=== PATIENT | male | born 1940 | race Caucasian/White ===

== ENCOUNTER 2023-07-10 19:54 | Inpatient (IN) | payer OTHER, BC ==
[~2023-07-10] VITALS: Ht 177.8 cm; Wt 84.4 kg
[2023-07-10 19:55] VITALS: BP_SYST 156; PULSE 88; RESP 18; TEMP 98.3; O2SAT 95
[2023-07-10] MEDS ORDERED: DEXTROSE 50% JECT 50 ML DISP.SYRIN ONE (19:58)
[2023-07-10] MEDS ORDERED: DEXTROSE 50% JECT 50 ML DISP.SYRIN IVP ONE ×2 (20:00→21:15)
[2023-07-10] MEDS ORDERED: iohexoL 350 mgI/mL, 100 ML INFUS..BTL IV ONE (20:11)
[2023-07-10 21:07] LABS: INR 1.5 (0.80-1.20); PROTHROMBIN TIME 15.3 SECS (9.5-12.5)
[2023-07-10 21:08] LABS: BILIRUBIN,URINE NEGATIVE (NEGATIVE); BLOOD, URINE 3+ (NEGATIVE); CLARITY/URINE CLOUDY (CLEAR); COLOR,URINE YELLOW (YELLOW); GLUCOSE,URINE NEGATIVE (NEGATIVE); KETONES,URINE NEGATIVE (NEGATIVE); LEUKOCYTE ESTERASE ,URINE 3+ (NEGATIVE); NITRITE, URINE POSITIVE (NEGATIVE); PROTEIN URINE 3+ (NEGATIVE); UROBILINOGEN,URINE 0.2 (0.2-1.0)
[2023-07-10 21:18] LABS: ALANINE AMINOTRANSFERASE 45 U/L (12-78); ALBUMIN 2.4 g/dL (3.4-4.8); ANION GAP 20 (5-15); ASPARTATE AMINOTRANSFERASE 33 U/L (10-37); BILIRUBIN,DIRECT 0.1 mg/dL (0.0-0.3); CALCIUM 8.1 mg/dL (8.4-11.0); CARBON DIOXIDE 21 mmol/L (23-29); CHLORIDE 98 mmol/L (98-107); CREATINE KINASE, TOTAL 103 U/L (39-308); CREATININE 3.53 mg/dL (0.55-1.30); GLUCOSE 84 mg/dL (74-106); SODIUM SERUM 139 mmol/L (136-145); TOTAL BILIRUBIN 0.5 mg/dL (0.0-1.0); TOTAL PROTEIN, SERUM 4.6 g/dL (6.4-8.3)
[2023-07-10 21:25] LABS: BASOPHILS % (AUTO) 0.1 % (0.0-2.0); HEMOGLOBIN 10.7 g/dL (14.0-18.0); LYMPHOCYTES # (AUTO) 0.4 K/uL (1.0-5.5); MONOCYTES # (AUTO) 0.3 K/uL (0.0-1.0); RED BLOOD CELL COUNT(AUTO) 3.66 MIL/uL (4.2-6.2); WHITE BLOOD COUNT (AUTO) 11.5 K/uL (4.8-10.8)
[2023-07-10] MEDS: D10W 250 ML IV SCH (21:27)
[2023-07-10 21:30] LABS: HEMATOCRIT 35.4 % (36-54); LYMPHOCYTES % (AUTO) 3.5 % (20.5-51.5); MEAN CORPUSCULAR HEMOGLOBIN 29 pg (27-31); MEAN CORPUSCULAR HGB CONC 30 % (32-36); MEAN CORPUSCULAR VOLUME 97 fL (79.0-98.0); MONOCYTES % (AUTO) 2.7 % (1.7-9.3); NEUTROPHILS # (AUTO) 10.8 K/uL (1.8-7.7); NEUTROPHILS % (AUTO) 93.7 % (40.0-70.0); PLATELET COUNT (AUTO) 93 K/uL (130-430); RED CELL DISTRIBUTION WIDTH 21.5 % (9.0-15.0)
[2023-07-10 21:33] LABS: ALCOHOL, BLOOD < 3 mg/dL (<10)
[2023-07-10 21:39] LABS: POTASSIUM 6.3 mmol/L (3.5-5.1); UREA NITROGEN, BLOOD 121 mg/dL (8-21)
[2023-07-10] MEDS ORDERED: AZITHROMYCIN 500 MG in NS 250 ML IV SCH (21:45)
[2023-07-10] MEDS ORDERED: AZITHROMYCIN 500 MG/VIAL (ZITHROMAX) IV ONE (21:52)
[2023-07-10] MEDS ORDERED: cefTRIAXone 2 GM VIAL ONE (21:53)
[2023-07-10 21:56] LABS: BARBITURATE, URINE NEGATIVE (NEG <=200); BENZODIAZEPINE, URINE NEGATIVE (NEG <=150); CANNABINOID, URINE NEGATIVE (NEG <=50); COCAINE, URINE NEGATIVE (NEG <=150); METHAMPHETAMINES SCREEN,URINE NEGATIVE (NEG <=500); OPIATE, URINE NEGATIVE (NEG <=100); PHENCYCLIDINE SCREEN,URINE NEGATIVE (NEG <=25); URINE AMPHETAMINE NEGATIVE (NEG <=500); URINE METHADONE NEGATIVE (NEG <=200); URINE OXYCODONE SCREEN NEGATIVE (NEG <=100)
[2023-07-10 21:57] LABS: UR TRICYCLIC ANTIDEPRESSANTS NEGATIVE (NEG <=300)
[2023-07-10 22:11] LABS: RBC,URINE 20-50 /HPF (0-3)
[2023-07-10 22:12] LABS: BACTERIA,URINE MANY /HPF (None Seen); MUCUS,URINE None Seen /LPF (None Seen); URIC ACID CRYSTALS,URINE 0-10 /HPF (None Seen); URINE AMORPHOUS URATE 2+ /HPF (None Seen); WBC,URINE >100 /HPF (0-3)
[2023-07-10] MEDS ORDERED: MUPIROCIN 2% TOPICAL OINTMENT 22 GM NS PRN (22:15)
[2023-07-10] MEDS ORDERED: MAGNESIUM SULFATE 50 ML IV PRN (22:15)
[2023-07-10] MEDS ORDERED: MORPHINE 2 MG/ML INJ. SYRINGE IVP PRN ×2 (22:15)
[2023-07-10] MEDS ORDERED: IPRATROPIUM/ALBUTEROL SULFATE 3 ML AMPUL.NEB (DUONEB) INH PRN (22:15)
[2023-07-10] MEDS ORDERED: D5/0.45 NS 1,000 ML IV SCH (22:15)
[2023-07-10] MEDS ORDERED: ZOLPIDEM TARTRATE 5 MG TABLET PO PRN (22:15)
[2023-07-10] MEDS ORDERED: DOCUSATE SODIUM 100 MG CAPSULE PO PRN (22:15)
[2023-07-10] MEDS ORDERED: ACETAMINOPHEN 325 MG TABLET PO PRN (22:15)
[2023-07-10] MEDS ORDERED: LORazepam 2 MG/ML VIAL IVP PRN (22:15)
[2023-07-10] MEDS ORDERED: POTASSIUM CHLORIDE 20 MEQ TABLET.ER PO PRN (22:15)
[2023-07-10] MEDS ORDERED: ONDANSETRON HCL 4 MG/2 ML VIAL IVP PRN (22:15)
[2023-07-10] MEDS: PIPERACILLIN/TAZOBACTAM 2.25 GM in NS 50 ML IV SCH (22:15)
[2023-07-10 22:25] LABS: ABG O2 SAT% ESTIMATE 89.9 % (94.0-100.0); ALLEN'S TEST POSITIVE (P); BLOOD GAS BASE EXCESS -11.1 mmol/L (-3.0-3.0); BLOOD GAS HCO3 20.7 mmol/L (21.0-27.0); BLOOD GAS PCO2 75.1 mmHg (32.0-45.0); BLOOD GAS PH 7.058 (7.350-7.450)
[2023-07-10] MEDS ORDERED: SODIUM POLYSTYRENE SULFONATE 15 GM/60 ML UDBTL PO ONE (22:45)
[2023-07-10 23:45] LABS: ANISOCYTOSIS 2+; OVALOCYTES FEW
[2023-07-11] VITALS (17 sets, daily range): BP systolic 68–83; PULSE 37–92; RESP 16–28; TEMP 97–99.4; O2SAT 91–100
[2023-07-11] MEDS ORDERED: LUTE1CAP5 PO (02:33)
[2023-07-11] MEDS ORDERED: IPRA3AMP9 INH (02:33)
[2023-07-11] MEDS ORDERED: DOCU-144 PO (02:33)
[2023-07-11] MEDS ORDERED: METO-442 PO (02:34)
[2023-07-11] MEDS ORDERED: MIRT-91 PO (02:37)
[2023-07-11] MEDS ORDERED: METF-379 PO (02:37)
[2023-07-11] MEDS ORDERED: ATOR-1 PO (02:37)
[2023-07-11] MEDS ORDERED: ASPI-1155 PO (02:37)
[2023-07-11] MEDS ORDERED: LISI-209 PO (02:37)
[2023-07-11] MEDS: PIPERACILLIN/TAZOBACTAM 2.25 GM in NS 50 ML IV SCH (03:15)
[2023-07-11 06:03] LABS: BASOPHILS # (AUTO) 0.1 K/uL (0.0-0.2); BASOPHILS % (AUTO) 0.4 % (0.0-2.0); HEMOGLOBIN 12.5 g/dL (14.0-18.0); LYMPHOCYTES # (AUTO) 0.1 K/uL (1.0-5.5); LYMPHOCYTES % (AUTO) 0.9 % (20.5-51.5); MEAN CORPUSCULAR HEMOGLOBIN 29 pg (27-31); MEAN CORPUSCULAR HGB CONC 30 % (32-36); MEAN CORPUSCULAR VOLUME 97 fL (79.0-98.0); MONOCYTES # (AUTO) 0.3 K/uL (0.0-1.0); NEUTROPHILS # (AUTO) 15.5 K/uL (1.8-7.7); NEUTROPHILS % (AUTO) 96.7 % (40.0-70.0); PLATELET COUNT (AUTO) 120 K/uL (130-430); RED CELL DISTRIBUTION WIDTH 21.8 % (9.0-15.0)
[2023-07-11 06:13] LABS: ANION GAP 16 (5-15); CALCIUM 8.2 mg/dL (8.4-11.0); CARBON DIOXIDE 26 mmol/L (23-29); CHLORIDE 101 mmol/L (98-107); CREATININE 3.75 mg/dL (0.55-1.30); GLUCOSE 66 mg/dL (74-106); HEMATOCRIT 37.5 % (36-54); RED BLOOD CELL COUNT(AUTO) 3.75 MIL/uL (4.2-6.2); SODIUM SERUM 143 mmol/L (136-145)
[2023-07-11 06:24] LABS: POTASSIUM 5.9 mmol/L (3.5-5.1); UREA NITROGEN, BLOOD 128 mg/dL (8-21)
[2023-07-11] MEDS ORDERED: DEXTROSE 50% JECT 50 ML DISP.SYRIN ONE (06:39)
[2023-07-11] MEDS ORDERED: DEXTROSE 50% JECT 50 ML DISP.SYRIN IVP ONE (06:45)
[2023-07-11] MEDS: D10W 250 ML IV SCH ×2 (07:07→07:13)
[2023-07-11] MEDS ORDERED: D5NS 1,000 ML IV SCH (09:00)
[2023-07-11] MEDS ORDERED: LORazepam 2 MG/ML VIAL IVP PRN (09:00)
[2023-07-12 01:25] VITALS: PULSE 71
[2023-07-12 01:40] VITALS: BP_SYST 79; PULSE 70; RESP 16; TEMP 97.7; O2SAT 100
[2023-07-12 04:05] VITALS: O2SAT 100
[2023-07-12 05:43] VITALS: PULSE 71
[2023-07-12 06:30] LABS: BASOPHILS % (AUTO) 0.1 % (0.0-2.0); LYMPHOCYTES # (AUTO) 0.5 K/uL (1.0-5.5); MEAN CORPUSCULAR HEMOGLOBIN 30 pg (27-31); MEAN CORPUSCULAR HGB CONC 30 % (32-36); MEAN CORPUSCULAR VOLUME 100 fL (79.0-98.0); MONOCYTES # (AUTO) 0.7 K/uL (0.0-1.0); MONOCYTES % (AUTO) 3.9 % (1.7-9.3); NEUTROPHILS # (AUTO) 16.3 K/uL (1.8-7.7); PLATELET COUNT (AUTO) 117 K/uL (130-430); RED BLOOD CELL COUNT(AUTO) 3.41 MIL/uL (4.2-6.2); RED CELL DISTRIBUTION WIDTH 21.7 % (9.0-15.0); WHITE BLOOD COUNT (AUTO) 17.6 K/uL (4.8-10.8)
[2023-07-12 07:10] LABS: ANION GAP 13 (5-15); CALCIUM 7.1 mg/dL (8.4-11.0); CARBON DIOXIDE 27 mmol/L (23-29); CHLORIDE 101 mmol/L (98-107); CREATININE 4.66 mg/dL (0.55-1.30); GLUCOSE 86 mg/dL (74-106); SODIUM SERUM 141 mmol/L (136-145)
[2023-07-12 07:53] VITALS: PULSE 98
[2023-07-12 08:00] VITALS: BP_SYST 104; PULSE 69; RESP 12; TEMP 97.8; O2SAT 92; O2SAT 95
[2023-07-12 08:24] LABS: POTASSIUM 7.3 mmol/L (3.5-5.1); UREA NITROGEN, BLOOD 138 mg/dL (8-21)
== END 2023-07-12 08:34 | DRG 871 ==
LOC: SED 19:54 → SMU 22:12 → STU 07-11 → SMU 07-11 09:58 → STU 07-11 10:15 → SMU 07-11 21:55
PROVIDERS: ADMIT General Practice; ATTEND General Practice
PROC: 5A09457 Assistance with Respiratory Ventilation, 24-96 Consecutive Hours, Continuous Positive Airway Pressure (ICD-10-PCS; principal; 2023-07-10)
DX: A41.9 Sepsis, unspecified organism (principal); E43 Unspecified severe protein-calorie malnutrition; R65.21 Severe sepsis with septic shock; N17.0 Acute kidney failure with tubular necrosis; J96.01 Acute respiratory failure with hypoxia; Z51.5 Encounter for palliative care; Z66 Do not resuscitate; E87.5 Hyperkalemia; Z68.26 Body mass index [BMI] 26.0-26.9, adult; I25.10 Atherosclerotic heart disease of native coronary artery without angina pectoris; I11.0 Hypertensive heart disease with heart failure; I50.9 Heart failure, unspecified; Z87.891 Personal history of nicotine dependence; Z88.0 Allergy status to penicillin
CPT/HCPCS: 36415; 36600; 70450-TC; 70496; 70498; 71045; 76376; 80048; 80076; 80307; 81000; 81001; 81015; 82550; 82803; 82962; 83037; 83605; 83735; 84484; 85025; 85610-TC; 85730-TC; 87040; 87086; 93005; 94660; 94760; 96365; 96368; 96375; 96376; 99285; G0482; J0456; J0696; J2270; Q9967